=== PATIENT | female | born 1955 | race Caucasian/White ===

== ENCOUNTER 2021-04-19 09:41 | Outpatient (CLI) | payer MEDICARE | END 2021-04-19 09:42 | disposition home or self-care (01) | LOC: CSHMAMMO 09:41 | PROVIDERS: ATTEND Nurse Practitioner Family | DX: Z13.820 Encounter for screening for osteoporosis (principal); Z78.0 Asymptomatic menopausal state; M85.89 Other specified disorders of bone density and structure, multiple sites | CPT/HCPCS: 77080 ==